=== PATIENT | male | born 1985 | race Caucasian/White ===

== ENCOUNTER 2017-08-25 18:26 | Emergency (ER) | payer OTHER ==
[~2017-08-25] VITALS: Ht 177.8 cm; Wt 81.8 kg
[2017-08-25] MEDS ORDERED: cefTRIAXone SOD 250 MG VIAL (J0696) IM ONE (20:15)
[2017-08-25] MEDS ORDERED: AZITHROMYCIN 250 MG TAB PO ONE (20:15)
[2017-08-25 20:55] VITALS: BP 162/66
== END 2017-08-25 20:56 | disposition home or self-care (01) ==
LOC: M ED 18:26
DX: Z20.2 Contact with and (suspected) exposure to infections with a predominantly sexual mode of transmission (principal)
CPT/HCPCS: 81001; 87086; 87491; 87591; 96372; 99283; J0696

== ENCOUNTER → 2018-04-11 | Outpatient (CLI) | payer OTHER ==
[2018-04-11 14:04] LABS: BASO % 0.1 % (0.0-1.0); EOS # 0.2 10^3/uL (0.0-0.50); EOS % 3.2 % (0.0-3.0); HEMATOCRIT 44.6 % (42.0-52.0); HEMOGLOBIN 15.7 g/dl (13.5-17.5); IMMATURE GRANULOCYTE % 0.1 % (0-3.0); LYMPH % 28.4 % (24.0-44.0); MEAN CORPUSCULAR HEMOGLOBIN 31.3 pg (27.0-33.0); MEAN CORPUSCULAR HGB CONC 35.2 g/dl (32.0-36.5); MEAN CORPUSCULAR VOLUME 88.8 fl (80.0-96.0); MONO # 0.6 10^3/uL (0.0-0.8); MONO % 9.1 % (0.0-5.0); NEUTROPHILS # 4.1 10^3/uL (1.8-7.7); NEUTROPHILS % 59.1 % (36.0-66.0); PLATELET COUNT, AUTOMATED 189 10^3/uL (150-450); RED BLOOD COUNT 5.02 10^6/uL (4.30-6.10); RED CELL DISTRIBUTION WIDTH 12.2 % (11.5-14.5); WHITE BLOOD COUNT 6.9 10^3/uL (4.0-10.0)
[2018-04-11 14:19] LABS: INR 0.88; PARTIAL THROMBOPLASTIN TIME 20.9 SECONDS (26.8-37.9)
[2018-04-11 14:21] LABS: ALBUMIN 4.2 GM/DL (3.2-5.2); ALBUMIN/GLOBULIN RATIO 1.24 (1.00-1.93); ALKALINE PHOSPHATASE 58 U/L (45-117); ALT/SGPT 37 U/L (12-78); ANION GAP 6 MEQ/L (8-16); AST/SGOT 24 U/L (7-37); BILIRUBIN,TOTAL 0.4 MG/DL (0.2-1.0); BLOOD UREA NITROGEN 22 MG/DL (7-18); CALCIUM LEVEL 8.8 MG/DL (8.5-10.1); CARBON DIOXIDE LEVEL 33 MEQ/L (21-32); CHLORIDE LEVEL 105 MEQ/L (98-107); CREATININE FOR GFR 1.08 MG/DL (0.70-1.30); GLOMERULAR FILTRATION RATE > 60.0 (>60); GLUCOSE, FASTING 84 MG/DL (70-100); POTASSIUM SERUM 4.1 MEQ/L (3.5-5.1); SODIUM LEVEL 144 MEQ/L (136-145); TOTAL PROTEIN 7.6 GM/DL (6.4-8.2)
[2018-04-11 14:30] LABS: COLLAGEN EPINEPHRINE 118 SECONDS (74-162)
== END ==
LOC: M LAB 13:25
DX: Z01.818 Encounter for other preprocedural examination (principal); R94.31 Abnormal electrocardiogram [ECG] [EKG]
CPT/HCPCS: 71046

== ENCOUNTER 2018-05-01 05:58 | Inpatient (IN) | payer OTHER ==
[2018-05-01] MEDS ORDERED: SCOPOLAMINE 1MG TRANSDERMAL PATCH As Ordered (06:55)
[2018-05-01] MEDS: LR 1,000 ML IV ×2 (06:57→11:45)
[2018-05-01] MEDS: SCOPOLAMINE 1MG TRANSDERMAL PATCH TOP (07:00)
[2018-05-01] MEDS ORDERED: PROPOFOL 200 MG/20 ML VIAL As Ordered ×8 (07:01→10:24)
[2018-05-01] MEDS ORDERED: SUCCINYLCHOLINE 100 MG/5 ML SYRINGE (J0330) As Ordered (07:01)
[2018-05-01] MEDS ORDERED: dexameTHASONE 4 MG/ML 1ML VIAL (J1100) As Ordered ×2 (07:02)
[2018-05-01] MEDS ORDERED: ONDANSETRON 4MG/2ML VIAL (J2405) As Ordered (07:02)
[2018-05-01] MEDS ORDERED: HYDROmorphone HCL 2 MG/ML 1ML VIAL (J1170) As Ordered (07:03)
[2018-05-01] MEDS ORDERED: fentaNYL 250 MCG/5 ML INJECTION (J3010) As Ordered (07:03)
[2018-05-01] MEDS ORDERED: MIDAZOLAM INJ 2 MG/2 ML VIAL (J2250) As Ordered (07:03)
[2018-05-01] MEDS ORDERED: LIDOCAINE 2% INJ 100 MG/5 ML SDV (FOR ANES.) As Ordered (07:09)
[2018-05-01] MEDS ORDERED: REMIFENTANIL 1MG 3ML VIAL As Ordered ×4 (07:40→09:55)
[2018-05-01] MEDS ORDERED: ROCURONIUM BROMIDE 50 MG/5 ML VIAL As Ordered (07:43)
[2018-05-01] MEDS: BACITRACIN PWD 50,000 UNITS VIAL As Ordered ×2 (09:44→10:30)
[2018-05-01] MEDS: THROMBIN SOLN 20,000 UNITS KIT As Ordered (09:44)
[2018-05-01] MEDS: methylPREDNISolone SUSP 40 MG/ML (DEPO-medrol) VIAL (J1030) As Ordered (10:30)
[2018-05-01] MEDS ORDERED: fentaNYL 100 MCG/2 ML INJECTION (J3010) As Ordered (11:31)
[2018-05-01] MEDS: fentaNYL 100 MCG/2 ML INJECTION (J3010) IV ×4 (11:34→11:49)
[2018-05-01] MEDS ORDERED: HYDROMORPHONE HCL 0.5 MG/ 0.5 ML SYRINGE (J1170 PER 1) IV (11:45)
[2018-05-01] MEDS ORDERED: ACETAMINOPHEN TAB 650MG DOSE (2X325MG) PO (11:45)
[2018-05-01] MEDS ORDERED: ONDANSETRON 4MG/2ML VIAL (J2405) IV ×2 (11:45)
[2018-05-01] MEDS: PERCOCET 5MG/325MG TAB PO (11:57)
[2018-05-01] MEDS: KCL 20MEQ IN D5/0.45NS 1000ML 1,000 ML IV ×2 (12:39→20:05)
[2018-05-01] MEDS: MORPHINE 4 MG/ML 1ML VIAL/SYRINGE (J2270) IV ×2 (13:20→18:34)
[2018-05-01] MEDS: ceFAZolin SOD 1 GM in D5W MINI-BAG PLUS 50 ML IV ×2 (14:10→22:45)
[2018-05-01] MEDS: NORCO, ANEXSIA 5/325MG TABLET (HYDROcodone/ACETAMINOPHEN) PO ×2 (16:24→20:39)
[2018-05-01] MEDS ORDERED: CEPACOL LOZENGE PO (21:45)
[2018-05-01] MEDS: methylPREDNISolone SUSP 40 MG/ML (DEPO-medrol) VIAL (J1030) IM (22:45)
[2018-05-01] MEDS: zolPIDEM TARTRATE 5 MG TAB PO (22:46)
[2018-05-02] MEDS: KCL 20MEQ IN D5/0.45NS 1000ML 1,000 ML IV (04:25)
[2018-05-02] MEDS: NORCO, ANEXSIA 5/325MG TABLET (HYDROcodone/ACETAMINOPHEN) PO ×3 (06:06→14:36)
[2018-05-02] MEDS: ceFAZolin SOD 1 GM in D5W MINI-BAG PLUS 50 ML IV (06:06)
[2018-05-02] MEDS: MORPHINE 4 MG/ML 1ML VIAL/SYRINGE (J2270) IV ×2 (07:02→13:05)
== END 2018-05-02 15:03 | disposition home or self-care (01) | DRG 473 ==
LOC: M OR 05:58 → M PED 12:36
PROC: 0RG20K0 Fusion of 2 or more Cervical Vertebral Joints with Nonautologous Tissue Substitute, Anterior Approach, Anterior Column, Open Approach (ICD-10-PCS; principal; 2018-05-01 07:30)
PROC: 0RB30ZZ Excision of Cervical Vertebral Disc, Open Approach (ICD-10-PCS; 2018-05-01 07:30)
PROC: 01N10ZZ Release Cervical Nerve, Open Approach (ICD-10-PCS; 2018-05-01 07:30)
DX: M47.22 Other spondylosis with radiculopathy, cervical region (principal); M47.12 Other spondylosis with myelopathy, cervical region; F32.9 Major depressive disorder, single episode, unspecified; G56.23 Lesion of ulnar nerve, bilateral upper limbs; F43.10 Post-traumatic stress disorder, unspecified; G56.03 Carpal tunnel syndrome, bilateral upper limbs; Z79.899 Other long term (current) drug therapy; Z79.1 Long term (current) use of non-steroidal anti-inflammatories (NSAID)

== ENCOUNTER → 2018-06-21 | Outpatient (CLI) | payer OTHER | LOC: M LRY 08:05 | DX: M47.892 Other spondylosis, cervical region (principal); Z98.1 Arthrodesis status | CPT/HCPCS: 72040 ==

== ENCOUNTER → 2018-09-14 | Outpatient (CLI) | payer OTHER | LOC: M LRY 12:10 | DX: M47.892 Other spondylosis, cervical region (principal) | CPT/HCPCS: 72050 ==

== ENCOUNTER → 2018-09-19 | Outpatient (REF) | payer OTHER ==
[2018-09-19 14:12] LABS: DRVV SCREEN 34.8 SEC
[2018-09-19 14:15] LABS: PTT LUPUS TYPE ANTICOAG SCREEN 0.8 (0-1.2)
[2018-09-19 14:24] LABS: FREE T4 1.14 NG/DL (0.76-1.46); FREE THYROXINE INDEX 3.3 % (1.4-3.8); T UPTAKE 33 % (33-40); THYROXINE (T4) 9.9 UG/DL (4.5-12.0)
[2018-09-19 14:27] LABS: ERYTHROCYTE SEDIMENTATION RATE 4 mm/hr (0-15)
[2018-09-22 08:06] LABS: ANTINUCLEAR ANTIBODIES DIRECT Negative (Negative); CERULOPLASMIN 20.5 mg/dL (16.0-31.0); COPPER PLASMA 80 ug/dL (72-166); LEAD BLOOD ADULT <1 ug/dL (0-4); MERCURY LEVEL None Detected ug/L (0.0-14.9)
== END ==
LOC: M LABNEURO 10:35
DX: M54.5 Low back pain (principal); M54.2 Cervicalgia

== ENCOUNTER → 2018-11-27 | Outpatient (CLI) | payer OTHER ==
[~2018-11-27] MED LIST: BCAA; CIPR-250 PO; GABA-845 PO; HYDR-3363 PO; NAPR-885 PO; NORC1TAB4 PO; PROTPOW11 PO; SOMA350T PO
--- NOTE | 2018-12-04 10:39 | SLEEPMSLT ---
DATE OF PROCEDURE: 11/27/2018 ORDERED BY: Nuzhat Elias Nocturnal polysomnography with multiple sleep latency testing was performed for evaluation of sleep physiology in this patient with a history of excessive somnolence, snoring and nonrestorative sleep. For the nocturnal portion of testing, 7 hours and 53 minutes of data were reviewed. There were 431 minutes of sleep identified. Sleep latency was prolonged at 23.5 minutes. Rapid eye movement (REM) latency was normal at 83 minutes. Sleep architecture was fair with 2 REM cycles noted. Overall sleep efficiency was 92.2%. The patient's electrocardiogram showed a sinus rhythm with an average heart rate of 60 beats per minute. Rate ranged 50-75. Electroencephalogram (EEG) showed fairly normal waveforms for awake and sleep. There were only 18 respiratory events identified of 10 seconds in duration or greater for an apnea-hypopnea index of 2.5. Arousals from respiratory events occurred only 2.1 times per hour, though snoring was appreciated over the entire course of the study. Significant limb activity was noted with two trains of 30 events. Limb movement arousal index was 9.5 events/hr. Oxygen saturations remained 90% plus for the entire study. Following the nighttime portion of testing, multiple sleep latency testing was performed. Five nap opportunities were offered at 2-hour intervals. Sleep was seen on two of five nap opportunities and the mean sleep latency was 16.7minutes. No REM sleep was appreciated during nap opportunities. IMPRESSION: 1. Periodic limb movement disorder (G47.61). Limb movement arousal index 9.5. 2. Normal multiple sleep latency testing results. RECOMMENDATION: Interventions to reduce the frequency of arousal from limb activity should improve the quality of the patient's sleep. [facility]
== END ==
LOC: M SLEEP 19:41
PROVIDERS: ATTEND Nurse Practitioner Family
DX: R40.0 Somnolence (principal)

== ENCOUNTER 2019-08-01 20:23 | Emergency (ER) | payer OTHER ==
[~2019-08-01] VITALS: Ht 177.8 cm; Wt 79.5 kg
[~2019-08-01 20:23] MED LIST changes: -NORC1TAB4 PO; +NORC1TAB7 PO
[2019-08-01] MEDS ORDERED: ALIG4CAP (20:33)
[2019-08-01] MEDS ORDERED: QUET5TAB (20:33)
[2019-08-01] MEDS ORDERED: SILD50TA (20:33)
[2019-08-01] MEDS ORDERED: RISP1TAB3 (20:33)
[2019-08-01] MEDS ORDERED: FLUO40CA (20:33)
[2019-08-01] MEDS ORDERED: CELE1CAP9 (20:33)
[2019-08-01 22:14] LABS: INFLUENZA A AMPLIFICATION NEGATIVE (NEGATIVE); INFLUENZA B AMPLIFICATION NEGATIVE (NEGATIVE)
[2019-08-01] MEDS ORDERED: ACETAMINOPHEN TAB 650MG DOSE (2X325MG) PO ONE (22:30)
[2019-08-01 22:31] LABS: BASO % 0.3 % (0.0-1.0); EOS % 0.5 % (0.0-3.0); HEMATOCRIT 38.9 % (42.0-52.0); HEMOGLOBIN 13.6 g/dl (13.5-17.5); LYMPH # 1.1 10^3/uL (1.5-5.0); LYMPH % 14.6 % (24.0-44.0); MEAN CORPUSCULAR HEMOGLOBIN 31.8 pg (27.0-33.0); MEAN CORPUSCULAR VOLUME 90.9 fl (80.0-96.0); MONO # 1.2 10^3/uL (0.0-0.8); NEUTROPHILS % 68.2 % (36.0-66.0); PLATELET COUNT, AUTOMATED 147 10^3/uL (150-450); RED BLOOD COUNT 4.28 10^6/uL (4.30-6.10); WHITE BLOOD COUNT 7.3 10^3/uL (4.0-10.0)
[2019-08-01 22:56] LABS: MONO REFLEX EBV COMP NEGATIVE (NEGATIVE)
[2019-08-01] MEDS ORDERED: PENI500T PO (23:24)
[2019-08-01] MEDS ORDERED: PENICILLIN V POTASSIUM 500 MG TAB PO ONE (23:30)
[2019-08-01 23:45] VITALS: BP 121/68
[2019-08-04 00:07] LABS: EBV VIRAL CAPSID AG IgM <36.0 U/mL (0.0-35.9)
== END 2019-08-01 23:46 | disposition home or self-care (01) ==
LOC: M ED 20:23
DX: J03.90 Acute tonsillitis, unspecified (principal); F32.9 Major depressive disorder, single episode, unspecified; F41.9 Anxiety disorder, unspecified; F43.10 Post-traumatic stress disorder, unspecified; Z91.02 Food additives allergy status; Z79.899 Other long term (current) drug therapy